=== PATIENT | male | born 1965 | race Caucasian/White ===

== ENCOUNTER → 2022-03-16 | Outpatient (CLI) | payer OTHER ==
[2022-03-16] MEDS: LEXISCAN IV ONE (10:44)
--- NOTE | 2022-03-17 05:33 | STRESS ---
DATE OF SERVICE: 03/16/2022 DICTATOR NAME: SONAL ARAGON DO CARDIAC STRESS TEST INDICATION: Cardiac arrhythmia - atrial fibrillation. FINDINGS: Baseline EKG shows atrial fibrillation with controlled ventricular response. Poor R-wave progression is also noted. Cannot exclude an old anteroseptal infarct. Stress EKG shows atrial fibrillation with controlled ventricular response. At the end of stress, EKG shows atrial fibrillation with controlled ventricular response, unchanged from baseline. Baseline heart rate is 90 beats per minute and alexus to 94 beats per minute during stress. At the end of recovery, the heart rate was 79 beats per minute. Baseline blood pressure is 132/78 and remained the same during stress. At the end of recovery, the blood pressure was noted to be 126/84. Blood pressure and heart rate were appropriate for stress. There were no significant symptoms noted during stress. Baseline atrial fibrillation was noted at rest, stress and at recovery. EKG portion of stress test is negative for myocardial ischemia. Nuclear images were obtained with a rest dose of 11.13 mCi technetium-99 sestamibi, and a stress dose of 34.3 mCi technetium-99 sestamibi. Nuclear images reveal a moderate-sized area of periinfarct ischemia involving the inferior wall. Left ventricular ejection fraction is 71%. EDV is 68 mL, ESV is 20 mL. The left ventricle is normal in size. Gated motion images, however, reveal normal wall motion across all segments of the left ventricle. TID is 1.08. There is no evidence of diaphragmatic attenuation artifact. IMPRESSION: 1. There is a moderate-sized area of periinfarct ischemia involving the inferior wall of moderate severity. 2. This is an abnormal study. Recommend left heart catheterization. Edgar RICHARDSON D.O. DR: [email or web address] TID: [id number] RECEIPT: [id number]
== END | disposition home or self-care (01) ==
LOC: RAD 09:32
DX: I48.91 Unspecified atrial fibrillation (principal); R07.89 Other chest pain; I49.9 Cardiac arrhythmia, unspecified
CPT/HCPCS: 78452; 93017; J2785; A9500